=== PATIENT | male | born 1980 | race Caucasian/White ===

== ENCOUNTER 2017-09-22 06:24 | Day surgery (SDC) | payer OTHER ==
[2017-09-22] MEDS ORDERED: PERCOCET 5-3251 EACH PO (09:05)
[2017-09-22] MEDS ORDERED: RECTICARE30 GM TOP (09:06)
== END 2017-09-22 15:20 | disposition home or self-care (01) ==
LOC: EDBD → CIR.AMB 06:24
DX: K64.8 Other hemorrhoids (principal)